=== PATIENT | female | born 1950 | race Hispanic/Latino ===

== ENCOUNTER 2017-09-02 12:48 | Outpatient (CLI) | payer MEDICARE ==
--- NOTE | 2017-09-04 12:45 | Vascular Lab Report ---
LOWER EXTREMITY VENOUS DUPLEX: REASON FOR EXAM: Pain and swelling of the lower extremities. COMMENTS ON THE RIGHT: All veins visualized are freely compressible without evidence of internal echogenicity. Flow is spontaneous and phasic throughout. A soft tissue change in the right knee area is consistent with a Austin's cyst. COMMENTS ON THE LEFT: All veins visualized are freely compressible without evidence of internal echogenicity. Flow is spontaneous and phasic throughout. A soft tissue change in the left knee area is consistent with a Austin's cyst. IMPRESSION: No evidence of acute or chronic deep venous thrombosis in either lower extremity. A soft tissue change in the right knee area is consistent with a Austin's cyst. A soft tissue change in the left knee area is consistent with a Austin's cyst.
== END 2017-09-02 12:49 | disposition home or self-care (01) ==
LOC: VAS 12:48
PROVIDERS: ATTEND Internal Medicine
DX: I87.2 Venous insufficiency (chronic) (peripheral) (principal)
CPT/HCPCS: 93970